=== PATIENT | male | born 1965 | race American Indian/Alaskan Native ===

== ENCOUNTER 2021-11-22 12:01 | Emergency (ER) | payer SELFPAY ==
[2021-11-22 12:26] VITALS: BP 176/110
--- NOTE | 2021-11-22 13:11 | Emergency Department Report ---
ED General Adult HPI - General Chief complaint: Extremity Injury, Upper Stated complaint: LT ELBOW SWOLLEN Time Seen by Provider: 11/22/21 12:42 Source: patient Mode of arrival: Ambulatory Limitations: Language Barrier - History of Present Illness Initial comments: 55-year-old -Fil[place] male who is hard to hear presents to the emergency room complaining of 1 week history of swelling to his left elbow. Patient denies any injury that he is aware of. He states that does not really hurt. Denies any fever chills no nausea no vomiting. Onset/Timin -: week(s) Location: left (Elbow), upper extremity Severity scale (0 -10): 0 Associated Symptoms: denies other symptoms Treatments Prior to Arrival: none - Related Data Previous Rx's Medication Instructions Recorded Last Taken Type Arm Brace [Elbow Compression] 1 each MC DAILY #1 each 11/22/21 Unknown Rx Allergies Allergy/AdvReac Type Severity Reaction Status Date / Time No Known Allergies Allergy Verified 11/22/21 12:21 ED Review of Systems ROS: Stated complaint: LT ELBOW SWOLLEN Other details as noted in HPI Comment: All other systems reviewed and negative ED Past Medical Hx - Medications Home Medications: Home Medications Medication Instructions Recorded Confirmed Last Taken Type Arm Brace [Elbow Compression] 1 each MC DAILY #1 each 11/22/21 Unknown Rx ED Physical Exam - General Limitations: Language Barrier General appearance: alert, in no apparent distress - Head Head exam: Present: atraumatic, normocephalic - Eye Eye exam: Present: normal appearance - ENT ENT exam: Present: mucous membranes moist, normal external ear exam - Neck Neck exam: Present: normal inspection, full ROM - Respiratory Respiratory exam: Absent: respiratory distress, accessory muscle use - Cardiovascular Cardiovascular Exam: Present: regular rate - Expanded Upper Extremity Exam Left Shoulder Exam: Present: normal inspection, full ROM Upper Arm exam: Present: normal inspection, full ROM Elbow exam: Present: full ROM, swelling. Absent: tenderness Forearm Wrist exam: Present: normal inspection, full ROM. Absent: tenderness Hand Wrist exam: Present: normal inspection - Back Exam Back exam: Present: normal inspection - Neurological Exam Neurological exam: Present: alert, oriented X3 - Psychiatric Psychiatric exam: Present: normal affect, normal mood - Skin Skin exam: Present: warm, dry, intact, normal color. Absent: rash ED Course Vital Signs 11/22/21 12:20 Temperature 98.2 F Pulse Rate 88 Respiratory 16 Rate Blood Pressure 176/110 O2 Sat by Pulse 98 Oximetry Critical care attestation.: If time is entered above; I have spent that time in minutes in the direct care of this critically ill patient, excluding procedure time. ED Disposition Clinical Impression: Olecranon bursitis of left elbow Disposition: HOME / SELF CARE / HOMELESS Is pt being admited?: No Does the pt Need Aspirin: No Condition: Stable Instructions: Elbow Bursitis, [id number] Additional Instructions: Please use elbow compression wrap as prescribed. If you have any pain you can take Tylenol or ibuprofen. I placed a referral for orthopedic if no improvement they will be able to drain for you. Prescriptions: Arm Brace [Elbow Compression] 1 each MC DAILY #1 each Referrals: CURTIS SANDRA MD [Staff Physician] - 3-5 Days Forms: Work/School Release Form(ED) Time of Disposition: 13:12
== END 2021-11-22 13:54 | disposition home or self-care (01) ==
LOC: ED 12:01
DX: M70.22 Olecranon bursitis, left elbow (principal)
CPT/HCPCS: 99282